=== PATIENT | female | born 1980 | race Caucasian/White ===

== ENCOUNTER 2016-07-07 10:54 | Day surgery (SDC) | payer OTHER ==
[~2016-07-07] VITALS: Ht 154.9 cm; Wt 88.5 kg
[~2016-07-07 10:54] MED LIST: 0.9% Sodium Chloride 1,000 ML IV PRN; BIOT1CAP3 PO; CLOM50TA PO; FOLI1TAB18 PO; METF500T4 PO; NIFE30TA79 PO; NPR500T PO; Sodium Chloride LOK Flush 10 mL Syringe IV PRN; fentaNYL-PF 50 mCg/mL 2 mL Inj IVPUSH PRN
[2016-07-07 11:31] VITALS: BP 143/100; PULSE 94; RESP 16; O2SAT 99
[2016-07-07 12:20] VITALS: BP 148/94; PULSE 87; RESP 16; O2SAT 97
[2016-07-07 12:30] VITALS: BP 148/94; PULSE 88; RESP 16; O2SAT 94
[2016-07-07 12:40] VITALS: BP 148/94; PULSE 89; RESP 16; O2SAT 96
--- NOTE | 2016-07-07 14:15 | ENDO ---
[address] [address] ENDOSCOPY PROCEDURE PATIENT: VÍCTOR ACOSTA : 1980 MR#: [id number] ADMIT: 07/07/2016 JOB ID: [id number] OPERATION: Colonoscopy, biopsy. PREOPERATIVE DIAGNOSIS(ES): Rectal bleeding. POSTOPERATIVE DIAGNOSIS(ES): 1. Mild erythema in the rectum status post biopsy. 2. A 2 mm ascending colon polyp, removed by cold biopsy forceps. 3. One hemoclip placed at the biopsy site at the cecum. ANESTHESIA: Fentanyl 175 mcg, Versed 7 mg IV administered. COMPLICATIONS: None. BLOOD LOSS: Minimal. DESCRIPTION OF PROCEDURE: After risks and benefits explained to the patient informed consent was obtained. After anesthesia administered, colonoscope was then inserted from the rectum to the terminal ileum. Mucosa carefully examined. Prep of the patient was excellent. After procedure was done, scope was withdrawn and procedure terminated. FINDINGS: Upon inspection of the anus, no masses, hemorrhoids, ulcers, fissures that were seen. Throughout the entire examination, there was mild erythema in the rectum and which biopsies were taken to rule out inflammatory bowel disease. There was a 2 mm ascending colon polyp, removed by cold biopsy forceps. Biopsies taken at terminal ileum, random colon to rule out IBD, microscopic colitis. One clip was placed in the cecum given the fact there was mild bleeding after the biopsy site. Retroflexion was normal. IMPRESSIONS: 1. Mild erythema in the rectum, status post biopsy. 2. A 2 mm ascending colon polyp, removed by cold biopsy forceps. 3. One hemoclip placed at the cecum at the biopsy site due to mild bleeding afterwards. RECOMMENDATIONS: Await pathology results. Follow up in GI clinic with Mahnaz Caceres as an outpatient.
--- NOTE | 2016-07-10 14:43 | PATH ---
SURGICAL PATHOLOGY Attending Physician:Serafin Cruz MD CASE STATUS: Signed Out PATIENT NAME: VÍCTOR ACOSTA PID: [id number] : 1980 DATE COLLECTED:07/07/2016 21:43 SPECIMEN: 1: Ileum, Biopsy 2: Colon, Biopsy 3: Colon, Biopsy 4: Rectum, Biopsy CLINICAL HISTORY: RECTAL BLEEDING 1).TERMINAL ILEUM BIOPSY 2). RANDOM COLON BIOPSY 3). ASCENDING COLON POLYP 4). RECTAL BIOPSY FINAL DIAGNOSIS: 1. Terminal Ileum, Biopsy: Small bowel mucosa with no diagnostic abnormality. Negative for active inflammation, dysplasia and malignancy. 2. Random Colon, Biopsy: Colonic mucosa with no diagnostic abnormality. Negative for active, chronic and microscopic colitis. Negative for dysplasia and malignancy. 3. Ascending Colon, Polyp, Biopsy: Sessile serrated adenoma. 4. Rectum, Biopsy: Rectal mucosa with no significant diagnostic abnormality. Negative for active, chronic and microscopic colitis. Negative for dysplasia and malignancy. ICD10: D12.2 GROSS DESCRIPTION: Received are four formalin-filled containers, each labeled with the patient' s name. 1. Received in formalin, labeled with the patient' s name and "TI BX", is one fragment of eller, soft tissue measuring 0.3 x 0.2 x 0.1 cm. The fragment is totally submitted in cassette 1A. 2. Received in formalin, labeled with the patient' s name and "random colon BX", are four fragments of eller, soft tissue ranging in size from 0.1 x 0.1 x 0.1 cm to 0.2 x 0.2 x 0.1 cm. All fragments are totally submitted in cassette 2A. 3. Received in formalin, labeled with the patient' s name and "ascending colon polyp", are two fragments of eller, soft tissue ranging in size from less than 0.1 cm by less than 0.1 cm by less than 0.1 cm to 0.3 x 0.2 x 0.1 cm. All fragments are totally submitted in cassette 3A. 4. Received in formalin, labeled with the patient' s name and "rectal biopsy", are two fragments of eller, soft tissue ranging in size from 0.2 x 0.1 x 0.1 cm to 0.2 x 0.2 x 0.2 cm. All fragments are totally submitted in cassette 4A. ([id number]) ICD-9 CODES: CPT CODES: 1: 98604 2: 19748 3: 48165 4: 85911 Electronically Signed Out Lucille Willis MD [facility] [address], [place] [address] Technical component performed at [facility], [address], [place], [address]
== END 2016-07-07 23:59 | disposition home or self-care (01) ==
LOC: END 10:54
PROVIDERS: ATTEND Internal Medicine Gastroenterology
DX: K62.5 Hemorrhage of anus and rectum (principal); D12.2 Benign neoplasm of ascending colon; R10.32 Left lower quadrant pain; R10.31 Right lower quadrant pain; Z83.71 Family history of colonic polyps; Z79.84 Long term (current) use of oral hypoglycemic drugs
CPT/HCPCS: 45380; G0500; J7030